=== PATIENT | female | born 2000 ===

== ENCOUNTER 2023-06-13 09:47 | Outpatient (CLI) | payer OTHER | END 2023-06-13 12:20 | disposition home or self-care (01) | LOC: PRENATAL 09:47 | PROVIDERS: ATTEND Obstetrics & Gynecology Maternal & Fetal Medicine | DX: O36.80X0 Pregnancy with inconclusive fetal viability, not applicable or unspecified (principal); Z36.82 Encounter for antenatal screening for nuchal translucency; O99.280 Endocrine, nutritional and metabolic diseases complicating pregnancy, unspecified trimester; Z14.8 Genetic carrier of other disease; Z3A.12 12 weeks gestation of pregnancy ==

== ENCOUNTER 2023-10-08 15:31 | Outpatient (CLI) | payer OTHER | END 2023-10-08 16:40 | disposition home or self-care (01) | LOC: PRENATAL 15:31 | PROVIDERS: ATTEND Obstetrics & Gynecology Maternal & Fetal Medicine | DX: O26.849 Uterine size-date discrepancy, unspecified trimester (principal); O99.280 Endocrine, nutritional and metabolic diseases complicating pregnancy, unspecified trimester; Z3A.28 28 weeks gestation of pregnancy ==

== ENCOUNTER 2023-11-15 09:33 | Outpatient (CLI) | payer OTHER | END 2023-11-15 09:34 | disposition home or self-care (01) | LOC: PRENATAL 09:33 | PROVIDERS: ATTEND Obstetrics & Gynecology Maternal & Fetal Medicine | DX: O26.849 Uterine size-date discrepancy, unspecified trimester (principal); O99.280 Endocrine, nutritional and metabolic diseases complicating pregnancy, unspecified trimester; O36.8199 Decreased fetal movements, unspecified trimester, other fetus; Z3A.34 34 weeks gestation of pregnancy ==